=== PATIENT | male | born 1970 | race Two or more races ===

== ENCOUNTER 2024-02-11 12:45 | Outpatient (CLI) | payer OTHER | END 2024-02-11 23:59 | disposition home or self-care (01) | LOC: MRI02 12:45 | PROVIDERS: ATTEND Physician Assistant Medical | DX: M51.26 Other intervertebral disc displacement, lumbar region (principal); G96.00 Cerebrospinal fluid leak, unspecified; M48.07 Spinal stenosis, lumbosacral region; M43.26 Fusion of spine, lumbar region | CPT/HCPCS: 72148 ==